=== PATIENT | female | born 1985 | race Caucasian/White ===

== ENCOUNTER 2016-11-02 19:15 | Emergency (ER) | payer SELFPAY ==
[2016-11-02 19:24] VITALS: BP 151/97; BMI 26.2
[2016-11-02 19:41] LABS: BILIRUBIN,URINE NEGATIVE (NEGATIVE); BLOOD/HEMOGLOBIN,URINE 5+ (NEGATIVE); GLUCOSE, URINE NEGATIVE (NEGATIVE); KETONES,URINE NEGATIVE (NEGATIVE); LEUKOCYTE ESTERASE ,URINE NEGATIVE (NEGATIVE); NITRITES,URINE NEGATIVE (NEGATIVE); PROTEIN,URINE NEGATIVE (NEGATIVE); UROBILINOGEN,URINE NORMAL (NORMAL)
--- NOTE | 2016-11-02 19:41 | DR.GENAD ---
HPI - PCP Primary Care Physician: nfd - HPI Comment HPI Comment: HISTORY LUMBER DISC DISEASE. PROGRESSIVE LOWER BACK PAIN TIMES ONE WEEK. WORSE TODAY. NO NEW INJURY. PLAYED VOLLEY BALL RECENTLY BEFORE ONSET OF PAIN. - Complaint/Symptoms Chief Complaint Doctors Comments: LOWER BACK TIMES ONE WEEK. ABDOMINAL PAIN TODAY. Chief Complaint:: pt c/o back pain and abd pain. pt states" i have a knot under my rt ribs and it's hurting me really bad" - Nurses notes reviewed Nurses Notes Review: Yes - Source History Provided: Patient, Family Member - Mode of Arrival Mode of Arrival: Ambulatory - Timing Onset of Chief Complaint: 10/26/16 Came on: Suddenly - Duration Duration: Constant Duration: Days - Severity Severity: Moderate PMH - PMH Past Medical History: Yes Past Medical History Comment: chronic back problems S 1 L 5 bulging disk Past Surgical History: Yes Surgical History: , Cholecystectomy - Family History History of Family Medical Conditions: Yes Family Medical History: Diabetes Mellitus, Coronary Artery Disease, Heart Failure, Hypertension - Social History Type of Tobacco Use: Cigarettes Does any household member use tobacco: No Alcohol Use: Occasionally Do you use any recreational Drugs:: No Lives With: Family - infectious screening In the last 2 months have you had wt loss of >10#?: NO Have you had fever, night sweats or hemotysis?: No Have you traveled outside the country in the last 6 months?: No Isolation: Standard ROS - Review of Systems Constitutional: No Symptoms Reported Eyes: No Symptoms Reported ENTM: No Symptoms Reported Respiratoy: No Symptoms Reported Cardiovascular: No Symptoms Reported Gastrointestinal/Abdominal: Abdominal Pain, Nausea. negative: Vomiting Genitourinary: No Symptoms Reported. negative: Dysuria, Frequency, Hematuria Neurological: No Symptoms Reported Musculoskeletal: Back Pain, Back Integumentary: No Symptoms Reported Hematologic/Lymphatic: No Symptoms Reported Endocrine: No Symptoms Reported All Other Systems: Reviewed and Negative PE - Vital Signs Vitals: Temperature 98.3 F Pulse Rate 96 Respiratory Rate 16 Blood Pressure 151/97 O2 Sat by Pulse Oximetry 100 - General Limitations: No Limitations General Appearance: Alert - Head Head Exam: Normal Inspection - Eyes Eye exam: Normal Appearance - ENT ENT Exam: Normal External Ear Exam External Ear Exam: Normal External Inspection TM/Canal Exam: Bilateral Normal Nose Exam: Normal Nose Exam Mouth Exam: Normal Inspection Throat Exam: Normal Inspection - Neck Neck Exam: Trachea Midline - Chest Chest Inspection: Symmetric Chest Wall Rise - Respiratory Respiratory Exam: Normal Lung Sounds Bilat Respiratory Exam: Bilateral Clear to Auscultation - Cardiovascular Cardiovascular Exam: Regular Rate, Normal Rhythm, Normal Heart Sounds - Abdominal Exam Abdominal Exam: Normal Bowel Sounds, Soft, Tenderness Abdominal Tenderness: RLQ, LLQ, Suprapubic - Extremities Extremities Exam: Normal Inspection - Back Back Exam: Tenderness, Paraspinal Tenderness (LUMBER SPINE) - Neurologic Neurological Exam: Alert, Oriented X3, CN II-XII Intact, Normal Gait, Reflexes Normal. negative: Motor Sensory Deficit - Psychiatric Psychiatric Exam: Anxious - Skin Skin Exam: Normal Color MDM - Differential Diagnosis Differential Diagnosis: ABDOMINAL PAIN, UTI, KIDNEY STONE, LUMBER FRACTURE, LUMBOSACRAL STRAIN Course - Treatment Treatment: IM MED IN ED. PAIN DECREASING. - Education/Counseling Education/Counseling: Patient, Education Educated On: Treatment, Diagnosis, Needs for Follow Up ROR - Labs Reviewed Laboratory Results Reviewed?: Yes Result Diagrams: 11/02/16 21:13 11/02/16 21:13 Laboratory: WBC 9.1 X10^3/uL (3.6-10.0) 11/02/16 21:13 RBC 4.71 X10^6/uL (3.5-5.4) 11/02/16 21:13 Hgb 13.9 g/dL (12.0-16.0) 11/02/16 21:13 Hct 40.2 % (36.0-47.0) 11/02/16 21:13 MCV 85.3 fL (80.0-100.0) 11/02/16 21:13 MCH 29.5 pg (27.0-34.0) 11/02/16 21:13 MCHC 34.6 g/dL (33.0-35.0) 11/02/16 21:13 RDW 14.7 % (11.6-16.5) 11/02/16 21:13 Plt Count 278 X10^3/uL (150.0-450.0) 11/02/16 21:13 MPV 9.0 fL (7.4-11.0) 11/02/16 21:13 Neut % 62.6 % (42.0-75.0) 11/02/16 21:13 Lymph % 29.7 % (21.0-51.0) 11/02/16 21:13 [place] % 4.8 % (0.0-13.0) 11/02/16 21:13 Eos % 1.9 % (0.9-2.9) 11/02/16 21:13 Baso % 1.0 % (0.2-1.0) 11/02/16 21:13 Neut # 5.7 x10^3/uL (2.2-4.8) H 11/02/16 21:13 Lymph # 2.7 X10^3/uL (1.3-2.9) 11/02/16 21:13 [place] # 0.4 x10^3/uL (0.3-0.8) 11/02/16 21:13 Eos # 0.2 x10^3/uL (0.0-0.2) 11/02/16 21:13 Baso # 0.1 X10^3/uL (0.0-0.1) 11/02/16 21:13 Absolute Nucleated RBC 0.0 /100WBC 11/02/16 21:13 Sodium 142 mmol/L (136-145) 11/02/16 21:13 Corrected Sodium TNP 11/02/16 21:13 Potassium 3.7 mmol/L (3.5-5.1) 11/02/16 21:13 Chloride 105 mmol/L (98-107) 11/02/16 21:13 Carbon Dioxide 28.3 mmol/L (21-32) 11/02/16 21:13 BUN 10 mg/dL (7-18) 11/02/16 21:13 Creatinine 0.77 mg/dL (0.55-1.02) 11/02/16 21:13 Est GFR (MDRD) Af Amer > 60 (>60) 11/02/16 21:13 Est GFR (MDRD) Non-Af > 60 (>60) 11/02/16 21:13 Glucose 100 mg/dL (65-99) H 11/02/16 21:13 Calcium 8.4 mg/dL (8.5-10.1) L 11/02/16 21:13 Corrected Calcium TNP 11/02/16 21:13 Total Bilirubin 0.20 mg/dL (0.2-1.0) 11/02/16 21:13 AST 19 Units/L (15-37) 11/02/16 21:13 ALT 25 Units/L (12-78) 11/02/16 21:13 Alkaline Phosphatase 78 Units/L (46-116) 11/02/16 21:13 Total Protein 7.4 g/dL (6.4-8.2) 11/02/16 21:13 Albumin 3.6 g/dL (3.4-5.0) 11/02/16 21:13 Globulin 3.8 g/dL (2.5-4.5) 11/02/16 21:13 Albumin/Globulin Ratio 0.9 Ratio (1.1-2.1) L 11/02/16 21:13 Amylase 37 Units/L (25-115) 11/02/16 21:13 Lipase 120 Units/L (73-393) 11/02/16 21:13 Specimen Type Clean catch urine 11/02/16 19:28 Urine Color Yellow (YELLOW) 11/02/16 19:28 Urine Appearance Hazy (CLEAR) 11/02/16 19:28 Urine pH 7.0 (5.0 - 8.0) 11/02/16 19:28 Ur Specific [place] 1.010 (1.000-1.030) 11/02/16 19:28 Urine Protein Negative (NEGATIVE) 11/02/16 19:28 Urine Glucose (UA) Negative (NEGATIVE) 11/02/16 19:28 Urine Ketones Negative (NEGATIVE) 11/02/16 19:28 Urine Occult Blood 5+ (NEGATIVE) 11/02/16 19:28 Urine Nitrite Negative (NEGATIVE) 11/02/16 19:28 Urine Bilirubin Negative (NEGATIVE) 11/02/16 19:28 Urine Urobilinogen Normal (NORMAL) 11/02/16 19:28 Ur Leukocyte Esterase Negative (NEGATIVE) 11/02/16 19:28 Urine RBC 0-2 /HPF (NEGATIVE) 11/02/16 19:28 Urine WBC 0-2 /HPF (NEGATIVE) 11/02/16 19:28 Ur Squamous Epith Cells Rare /HPF (NEGATIVE) 11/02/16 19:28 Urine Bacteria Trace /HPF (NEGATIVE) 11/02/16 19:28 Ur Culture Indicated? No/not indicated 11/02/16 19:28 - XRAY XRAY Interpreted by: Radiologist XRAY Findings: REPORT DISCUSS WITH PATIENT. - Diagnosis Discharge Problem: Abdominal pain Qualifiers: Abdominal location: lower abdomen, unspecified Qualified Code(s): R10.30 - Lower abdominal pain, unspecified Lumbosacral strain Qualifiers: Encounter type: initial encounter Qualified Code(s): S39.012A - Strain of muscle, fascia and tendon of lower back, initial encounter Sciatica Qualifiers: Laterality: bilateral Qualified Code(s): M54.31 - Sciatica, right side; M54.32 - Sciatica, left side - Discharge Plan Disposition: 01 HOME, SELF-CARE Condition: Stable Prescriptions: Cyclobenzaprine HCl [FLEXERIL 10 MG *] 10 mg PO TID PRN #20 tab PRN Reason: Ibuprofen [MOTRIN TAB 600 MG *] 600 mg PO TID PRN #20 tab PRN Reason: Pain/Inflammation - Follow ups/Referrals Follow ups/Referrals: NFD,None [Primary Care Provider] - 11/03/16 - Instructions Instructions: Sciatica, Lumbosacral Strain, Abdominal Pain, Adult, [id number] Additional Instructions: RETURN TO ED IF WORSE.
[2016-11-02] MEDS ORDERED: TORADOL 60 MG VIAL IM ONE (19:42)
[2016-11-02] MEDS ORDERED: NORFLEX INJ IM ONE (19:42)
[2016-11-02] MEDS ORDERED: NORFLEX INJ ONE (19:47)
[2016-11-02] MEDS ORDERED: TORADOL 60 MG VIAL ONE (19:47)
[2016-11-02 19:49] LABS: APPEARANCE,URINE HAZY (CLEAR); COLOR,URINE YELLOW (YELLOW)
[2016-11-02 19:50] LABS: BACTERIA,URINE TRACE /HPF (NEGATIVE); RBC,URINE 0-2 /HPF (NEGATIVE); SQUAMOUS EPITHELIAL CELL,UR RARE /HPF (NEGATIVE)
[2016-11-02] MEDS ORDERED: PHENERGAN INJ 25 MG IM ONE (20:24)
[2016-11-02] MEDS ORDERED: DEMEROL INJ IM ONE (20:24)
[2016-11-02] MEDS ORDERED: DEMEROL INJ ONE (20:30)
[2016-11-02] MEDS ORDERED: PHENERGAN INJ 25 MG ONE (20:30)
[2016-11-02 21:23] LABS: BASOPHILS # (AUTO) 0.1 X10^3/uL (0.0-0.1); EOSINOPHILS # (AUTO) 0.2 x10^3/uL (0.0-0.2); EOSINOPHILS % (AUTO) 1.9 % (0.9-2.9); HEMATOCRIT 40.2 % (36.0-47.0); HEMOGLOBIN 13.9 g/dL (12.0-16.0); LYMPHOCYTES # (AUTO) 2.7 X10^3/uL (1.3-2.9); LYMPHOCYTES % (AUTO) 29.7 % (21.0-51.0); MEAN CORPUSCULAR HEMOGLOBIN 29.5 pg (27.0-34.0); MEAN CORPUSCULAR HGB CONC 34.6 g/dL (33.0-35.0); MEAN CORPUSCULAR VOLUME 85.3 fL (80.0-100.0); MONOCYTES # (AUTO) 0.4 x10^3/uL (0.3-0.8); MONOCYTES % (AUTO) 4.8 % (0.0-13.0); NEUTROPHILS # (AUTO) 5.7 x10^3/uL (2.2-4.8); NEUTROPHILS % (AUTO) 62.6 % (42.0-75.0); PLATELET COUNT 278 X10^3/uL (150.0-450.0); RED BLOOD COUNT 4.71 X10^6/uL (3.5-5.4); RED CELL DISTRIBUTION WIDTH 14.7 % (11.6-16.5); WHITE BLOOD COUNT 9.1 X10^3/uL (3.6-10.0)
[2016-11-02 21:36] LABS: ALANINE AMINOTRANSFERASE 25 Units/L (12-78); ALBUMIN 3.6 g/dL (3.4-5.0); ALKALINE PHOSPHATASE 78 Units/L (46-116); AMYLASE 37 Units/L (25-115); ASPARTATE AMINO TRANSFERASE 19 Units/L (15-37); BLOOD UREA NITROGEN 10 mg/dL (7-18); CALCIUM 8.4 mg/dL (8.5-10.1); CARBON DIOXIDE 28.3 mmol/L (21-32); CHLORIDE 105 mmol/L (98-107); CREATININE 0.77 mg/dL (0.55-1.02); GLUCOSE 100 mg/dL (65-99); LIPASE 120 Units/L (73-393); SODIUM 142 mmol/L (136-145); TOTAL PROTEIN 7.4 g/dL (6.4-8.2); eGFR BLACK RACES > 60 (>60); eGFR NON BLACK RACES > 60 (>60)
--- NOTE | 2016-11-02 21:55 | CT ---
CT abdomen and pelvis without contrast Indication: Abdominal pain with back pain. Technique: Helical images through the abdomen and pelvis without contrast. Coronal and sagittal refo rmats provided. Findings: There is pectus excavatum. Lung bases are clear. Review of bone windows shows no osseous l esion. Abdomen: Gallbladder is absent. The liver, spleen, adrenal glands, pancreas, stomach and small bowel show no acute abnormality. The appendix is normal. No acute colonic abnormality is seen. The kidneys are normal without hydroureteronephrosis or stones seen. Pelvis: Urinary bladder and rectum are normal. Uterus and adnexa show no unexpected abnormality. Impression: No renal stone or hydronephrosis. Mild lower lumbar spine degenerative change worst at L 5-S1. No other unexpected abnormality. Reported By:
== END 2016-11-02 22:16 | disposition home or self-care (01) ==
LOC: ER 19:26
DX: S39.012A Strain of muscle, fascia and tendon of lower back, initial encounter (principal); R10.31 Right lower quadrant pain; M54.32 Sciatica, left side; Y93.68 Activity, volleyball (beach) (court); Y92.9 Unspecified place or not applicable
CPT/HCPCS: 36415; 74176; 80053; 81001; 82150; 83690; 85025; 96372; 99283; J1885; J2175; J2360; J2550